=== PATIENT | male | born 1950 | race Caucasian/White ===

== ENCOUNTER 2017-02-27 11:06 | Emergency (ER) | payer SELFPAY ==
[~2017-02-27] VITALS: Ht 177.8 cm; Wt 96.0 kg
[2017-02-27 11:08] VITALS: Ht 177.8 cm; Wt 96.0 kg
[2017-02-27] MEDS ORDERED: LIDOCAINE 1% (MDV) 20 ML INJ SC ONE (13:30)
[2017-02-27] MEDS ORDERED: DIPHTH/TET/ACEL PERTUSS (ADULT) 0.5 ML VIAL IM* ONE (13:30)
--- NOTE | 2017-02-27 13:48 | RADRPT ---
PROCEDURE: Right hand series CLINICAL INDICATION: Right hand pain after trauma TECHNIQUE: Three views of the right hand were obtained. COMPARISON: No prior studies are available for comparison. FINDINGS: There is normal mineralization and alignment of the bones of the right hand. There is evidence of a healed fourth metacarpal fracture. There is no definitive evidence of acute fracture or dislocatio n. Joint spaces are well maintained. There is no evidence of osteophyte formation or erosions. Th e soft tissues are within normal limits. IMPRESSION: 1. No evidence of acute fracture or dislocation. 2. Healed fourth metacarpal fracture.. RPTAT: KK .Kevin Sahu MD, Date Time Electronically viewed and signed by .Kevin Sahu MD, on 02/27/2017 13:48 .B/
--- NOTE | 2017-02-27 13:49 | RADRPT ---
PROCEDURE: Left hand series CLINICAL INDICATION: Left hand pain after trauma TECHNIQUE: Three views of the left hand were obtained. COMPARISON: No prior studies are available for comparison. FINDINGS: There is normal mineralization and alignment of the bones of the left hand. There is no evidence of acute fracture or dislocation. Joint spaces are well maintained. There is no evidence of osteophy te formation or erosions. There are small hyperdensities within the volar subcutaneous tissues of t he base of the third digit and adjacent to the first distal interphalangeal joint. These findings l ikely represent small retained foreign bodies. There is also a small retained foreign body adjacent to the distal second metacarpal. There is diffuse soft tissue swelling IMPRESSION: 1. Diffuse soft tissue swelling without evidence of acute fracture or dislocation. 2. Multiple subcutaneous hyperdensities throughout the left and consistent with small foreign chelsie s.. RPTAT: KK .Kevin Sahu MD, MD Date Time Electronically viewed and signed by .Kevin Sahu MD, on 02/27/2017 13:49 .B/
[2017-02-27] MEDS ORDERED: IBUP-1542 PO (15:16)
--- NOTE | 2017-02-27 15:24 | ERD ---
ER Documentation Chief Complaint Date/Time DATE: 02/27/17 TIME: 15:20 Chief Complaint lac rt 2nd finger , lt middle finger and palm of hand with metal hardener HPI 66-year-old male present ED with laceration in the bilateral hands. 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 Patient stated that the barytes grinder was stuck in the middle. When he tried to pull the liner out, the barytes grinder was flung up in the air while still running and headed towards his head. He reports in both his hands up to protect his head. The barytes grinder hit his hands. He reports normal sensation in all his fingers, and able to move his fingers. He does not remember when his last tetanus update was. ROS All systems reviewed and are negative except as per history of present illness. Medications Home Meds Active Scripts Ibuprofen* (Motrin*) 600 Mg Tab, 600 MG PO Q6H Y for PAIN AND OR ELEVATED TEMP, #30 TAB Prov:JOE SMITH Ananya. WINDOW AIR CONDITIONER INSTALLER 02/27/17 PMhx/Soc Medical and Surgical Hx: pt denies Medical Hx Physical Exam Vitals Vital Signs Date Time Temp Pulse Resp B/P Pulse Ox O2 Delivery O2 Flow Rate FiO2 02/27/17 11:08 98.0 78 18 141/67 99 Physical Exam General: Well-developed, well-nourished, conscious and coherent, in no distress Skin: Warm and dry without rash, good texture and turgor Head: Normocephalic without evidence of trauma Chest: Normal AP diameter, good expansion without retractions. Nontender. Lungs are clear to auscultate bilaterally with good tidal volume Heart: Regular rate and rhythm. No murmur, rub, or gallop heard Abdomen: Soft and nontender without masses, guarding, or rebound. Bowel sounds are active. No hepatosplenomegaly Extremities: There is a 4.5 cm deep laceration in the webbing space between the second and third finger of the right hand, laceration extending to the palm. There is a 4 cm long laceration in the webbing space between the third and fourth finger of the left hand, laceration extended into the palm and the dorsal aspect of the left hand. There is also a 2.5 cm shallow laceration on the palmar aspect of the left third finger. Full range of motion. Good strength bilaterally. Peripheral pulses are intact. Sensation intact. Neuro: Alert and oriented. Mental status normal, speech clear. Cranial nerves grossly intact Results 24 hrs Current Medications Medications (Trade) Dose Ordered Sig/Derrick Route PRN Reason Start Time Stop Time Status Last Admin Dose Admin Diphtheria/ Tetanus/Acell Pertussis (Adacel) 0.5 ml ONCE ONCE IM* 02/27/17 13:30 02/27/17 13:31 DC 02/27/17 13:51 Lidocaine (Xylocaine 1% (Mdv) 20 ml) 20 ml ONCE ONCE SC 02/27/17 13:30 02/27/17 13:31 DC PROCEDURE: Left hand series CLINICAL INDICATION: Left hand pain after trauma TECHNIQUE: Three views of the left hand were obtained. COMPARISON: No prior studies are available for comparison. FINDINGS: There is normal mineralization and alignment of the bones of the left hand. There is no evidence of acute fracture or dislocation. Joint spaces are well maintained. There is no evidence of osteophyte formation or erosions. There are small hyperdensities within the volar subcutaneous tissues of the base of the third digit and adjacent to the first distal interphalangeal joint. These findings likely represent small retained foreign bodies. There is also a small retained foreign body adjacent to the distal second metacarpal. There is diffuse soft tissue swelling IMPRESSION: 1. Diffuse soft tissue swelling without evidence of acute fracture or dislocation. 2. Multiple subcutaneous hyperdensities throughout the left and consistent with small foreign bodies.. RPTAT: KK .Kevin Sahu MD, MD Date Time Electronically viewed and signed by .Kevin Sahu MD, MD on 2016 13:49 .B/ CC: JOE SMITH NP PROCEDURE: Right hand series CLINICAL INDICATION: Right hand pain after trauma TECHNIQUE: Three views of the right hand were obtained. COMPARISON: No prior studies are available for comparison. FINDINGS: There is normal mineralization and alignment of the bones of the right hand. There is evidence of a healed fourth metacarpal fracture. There is no definitive evidence of acute fracture or dislocation. Joint spaces are well maintained. There is no evidence of osteophyte formation or erosions. The soft tissues are within normal limits. IMPRESSION: 1. No evidence of acute fracture or dislocation. 2. Healed fourth metacarpal fracture.. RPTAT: KK .Kevin Sahu MD, MD Date Time Electronically viewed and signed by .Kevin Sahu MD, MD on 2016 13:48 .B/ CC: JOE SMITH WINDOW AIR CONDITIONER INSTALLER Procedures/MDM Procedure note: laceration repair Verbal consent was obtained for the laceration repair. The wound was copiously irrigated. Local anesthesia was provided using 1% lidocaine. After appropriate anesthesia, the area was explored under a bloodless field. Full range of motion of the joint above and below the injury was noted. No foreign body, deep structure or tendon involvement was noted. Wound closure: Right hand: 4.5 cm wound, 7 interrupted sutures with 4-0 Ethilon Left hand: 4 cm wound, 6 interrupted sutures with 4-0 Ethilon Left third digit, 2.5 cm laceration, 4 interrupted sutures with 4-0 Ethilon Good cosmetic and hemostatic results were obtained with the closure. The wound was then cleaned and a dressing was applied. Bartolome taping was used to immobilize left third and fourth fingers, as well as right second and third fingers. Patient was noted to be comfortable and neurovascularly intact both before and after the immobilization. TDap given to the patient in the ED. Patient advised to follow-up in the ED in 2 days for wound check. Departure Diagnosis: Primary Impression: Laceration Condition: Good Patient Instructions: Laceration, Hand Referrals[facility] Usted se sepulveda hecho un examen mdico de control que le indica que no est en antione condicin que requiera tratamiento urgente en el Departamento de Emergencia. Un estudio ms profundo y el tratamiento de castaneda condicin pueden esperar sin ningn riesgo hasta que usted sea atendida/o en el consultorio de castaneda mdico o antione cl breezy. Es responsabilidad suya arreglar antione christiano para el seguimiento del kailyn. MANEJO DE CONDICIONES NO URGENTES EN EL FUTURO 1) Si usted tiene un mdico de atencin primaria: Usted debera llamar a castaneda mdico de atencin primaria antes de venir al departamento de emergencia. Despus de las horas de consultorio, castaneda doctor o castaneda asociado/a est disponible por telfono. El mdico o enfermero de mariia en el servicio telefnico puede asesorarle por mamie medio para atender el problema, o kailyn contrario se puede programar antione christiano. 2) Si usted no tiene un mdico de atencin primaria: Llame al mdico o clnica de referencia que aparece abajo jose de jesus las horas de consultorio para hacer antione christiano para que le vean. CLINICAS: [facility] [phone] [address] [facility] [phone] [address] [facility]. [facility] [phone] [address] [facility]. [place] [address] [phone] [facility] [place] [address] [phone] [facility] [phone] [address] Additional Instructions: Regrese a estas instalaciones dentro de [place] para un examen de seguimiento.Regrese antes si castaneda condicin se empeora. SUTURE REMOVAL:CONSULTE A CASTANEDA MDICO PARA SACAR CASTANEDA PUNTOS.PARA LA VINCENT 5-6 d as.EN OTRO LUGAR 7-10 greene. JOE SMITH NP February 27, 2017 15:24
[2017-02-27 16:55] VITALS: BP 128/60; PULSE 85; RESP 18; TEMP 98.3
== END 2017-02-27 16:58 | disposition home or self-care (01) ==
LOC: FTE 11:06
DX: S61.210A Laceration without foreign body of right index finger without damage to nail, initial encounter (principal); S61.212A Laceration without foreign body of right middle finger without damage to nail, initial encounter; S61.213A Laceration without foreign body of left middle finger without damage to nail, initial encounter; S61.215A Laceration without foreign body of left ring finger without damage to nail, initial encounter; W26.8XXA Contact with other sharp object(s), not elsewhere classified, initial encounter; Y92.9 Unspecified place or not applicable; Z23 Encounter for immunization
CPT/HCPCS: 90471; 90715

== ENCOUNTER 2017-03-01 08:12 | Emergency (ER) | payer SELFPAY ==
[~2017-03-01] VITALS: Wt 92.0 kg
[~2017-03-01 08:12] MED LIST: IBUP-1542 PO
--- NOTE | 2017-03-01 08:48 | ERD ---
ER Documentation Chief Complaint Date/Time DATE: 03/01/17 TIME: 08:43 Chief Complaint bilateral hand wound 2 days ago . here for suture recheck . no complaints HPI Patient is a 66-year-old male who presents to the emergency department for wound recheck. Patient was seen here on 02-27-17 for lacerations his bilateral hands. Patient sustained lacerations after trying to catch a filer metal patterns that was headed towards his head. Patient denies any complaints at this time. Patient denies any fevers, chills, nausea, vomiting, redness, swelling, warmth or any pain.Patient reports normal range of motion of all digits and normal sensation. Patient denies taking any pain medication. Patient was given his tetanus vaccination at last visit. ROS All systems reviewed and are negative except as per history of present illness. Medications Home Meds Active Scripts Ibuprofen* (Motrin*) 600 Mg Tab, 600 MG PO Q6H Y for PAIN AND OR ELEVATED TEMP, #30 TAB Prov:JOE SMITH SURGERY TEACHER 02/27/17 PMhx/Soc Hx Alcohol Use: No Hx Substance Use: No Hx Tobacco Use: No Physical Exam Vitals Vital Signs Date Time Temp Pulse Resp B/P Pulse Ox O2 Delivery O2 Flow Rate FiO2 03/01/17 08:16 98.0 59 21 171/85 98 Physical Exam GENERAL: Well-developed, well-nourished male. Appears in no acute distress. HEAD: Normocephalic, atraumatic. EYES: Pupils are equally reactive bilaterally. EOMs grossly intact. No conjunctival erythema. NECK: Supple. No meningismus. Normal range of motion of the neck. LUNG: Clear to auscultation bilaterally. No rhonchi, wheezing, rales or coarse breath sounds. HEART: Regular rate and rhythm. No murmurs, rubs or gallops. EXTREMITIES: Equal pulses bilaterally. No peripheral clubbing, cyanosis or edema. No unilateral leg swelling. NEUROLOGIC: Alert and oriented. Moving all four extremities without any difficulty. Normal speech. Steady gait. SKIN: Normal color. RIGHT HAND: 4 cm laceration with sutures in place, no active bleeding or discharge. Good wound approximation and closure. No warmth, redness or swelling. LEFT HAND: 4 cm laceration with sutures in place, no active bleeding or discharge. Good wound approximation and closure. No warmth, redness or swelling. LEFT THIRD WEB SPACE: 2 cm laceration noted with sutures in place, no active bleeding or discharge. Good wound approximation closure. Skin appears macerated secondary to retained moisture from dressing. No warmth, redness or swelling. Procedures/MDM MEDICAL DECISION MAKING: This is a 66-year-old male who presents for wound check 2 lacerations on his bilateral hands. Vital signs were reviewed. Patient is afebrile. The wounds appear to be healing well with no concerns of acute infection at this time. No wound drainage or wound dehiscence noted. Tetanus is up-to-date. Post- procedural wound care was discussed with the patient. PRESCRIPTIONS: none, continue to take pain medication as needed. DISCHARGE: At this time, the patient is stable for discharge and outpatient management. Post-procedural wound care was discussed with the patient. Patient advised to return in 1 week for suture removal. I have instructed the patient to promptly return to the ER for any new or worsening symptoms including increasing pain, fever, warmth, redness or swelling. The patient and/or family expressed understanding of and agreement with this plan. All questions were answered. Home care instructions were provided. Departure Diagnosis: Primary Impression: Encounter for wound re-check Additional Impression: Laceration Patient Instructions: Wound Check, Lac F/U (No Infection) Referrals: [facility] YOU HAVE RECEIVED A MEDICAL SCREENING EXAM AND THE RESULTS INDICATE THAT YOU DO NOT HAVE A CONDITION THAT REQUIRES URGENT TREATMENT IN THE EMERGENCY DEPARTMENT. FURTHER EVALUATION AND TREATMENT OF YOUR CONDITION CAN WAIT UNTIL YOU ARE SEEN IN YOUR DOCTORS OFFICE WITHIN THE NEXT 1-2 DAYS. IT IS YOUR RESPONSIBILITY TO MAKE AN APPOINTMENT FOR FOLOW-UP CARE. IF YOU HAVE A PRIMARY DOCTOR --you should call your primary doctor and schedule an appointment IF YOU DO NOT HAVE A PRIMARY DOCTOR YOU CAN CALL OUR PHYSICIAN REFERRAL HOTLINE AT IF YOU CAN NOT AFFORD TO SEE A PHYSICIAN YOU CAN CHOSE FROM THE FOLLOWING [facility] [address] [facility] [address] [facility] [place] [address] [facility] [address] [facility] [address] [facility]. [facility] [address] [facility]. [facility] YOU HAVE RECEIVED A MEDICAL SCREENING EXAM AND THE RESULTS INDICATE THAT YOU DO NOT HAVE A CONDITION THAT REQUIRES URGENT TREATMENT IN THE EMERGENCY DEPARTMENT. FURTHER EVALUATION AND TREATMENT OF YOUR CONDITION CAN WAIT UNTIL YOU ARE SEEN IN YOUR DOCTORS OFFICE WITHIN THE NEXT 1-2 DAYS. IT IS YOUR RESPONSIBILITY TO MAKE AN APPOINTMENT FOR FOLOW-UP CARE. IF YOU HAVE A PRIMARY DOCTOR --you should call your primary doctor and schedule and appointment IF YOU DO NOT HAVE A PRIMARY DOCTOR YOU CAN CALL OUR PHYSICIAN REFERRAL HOTLINE AT . IF YOU CAN NOT AFFORD TO SEE A PHYSICIAN YOU CAN CHOSE FROM THE FOLLOWING [facility] INSTITUTIONS: [facility] [address] [place] [address] [facility] [address] [place] [address] [facility] + [facility] [address] [place] [address] Additional Instructions: Return to the emergency department in 1 week for suture removal. Continue to monitor symptoms. Return for any new or worsening symptoms including but not limited to fevers, chills, nausea, vomiting, redness, swelling , or warmth. AMERICA DELGADO PA-C March 01, 2017 08:48
== END 2017-03-01 09:10 | disposition home or self-care (01) ==
LOC: FTE 08:12
DX: Z48.01 Encounter for change or removal of surgical wound dressing (principal); S61.412D Laceration without foreign body of left hand, subsequent encounter; S61.411D Laceration without foreign body of right hand, subsequent encounter; W29.8XXD Contact with other powered hand tools and household machinery, subsequent encounter
CPT/HCPCS: 99281

== ENCOUNTER 2017-03-11 07:17 | Emergency (ER) | payer SELFPAY ==
[~2017-03-11] VITALS: Ht 177.8 cm; Wt 97.5 kg
[2017-03-11 07:21] VITALS: Ht 177.8 cm; Wt 97.5 kg
[2017-03-11 08:04] VITALS: BP 180/96; PULSE 66; RESP 20; TEMP 98.3
--- NOTE | 2017-03-11 09:01 | ERD ---
ER Documentation Chief Complaint Date/Time DATE: 03/11/17 TIME: 08:55 Chief Complaint left and right hand suture removal HPI This is a 66-year-old male presenting to emergency department for suture removal. Patient had an injury involving a metal control coordinator on 02/27/2017. Patient had a total of 17 sutures placed at that time to left and right hand. Patient denies fever chills. No erythema, warmth, drainage or induration. Patient denies pain. No other complaints. ROS All systems reviewed and are negative except as per history of present illness. Medications Home Meds Active Scripts Ibuprofen* (Motrin*) 600 Mg Tab, 600 MG PO Q6H Y for PAIN AND OR ELEVATED TEMP, #30 TAB Prov:JOE SMITH EMERGENCY MANAGEMENT DIRECTOR 02/27/17 Allergies Allergies: Coded Allergies: No Known Allergy (Unverified , 03/11/17) PMhx/Soc Hx Alcohol Use: No Hx Substance Use: No Hx Tobacco Use: No Physical Exam Vitals Vital Signs Date Time Temp Pulse Resp B/P Pulse Ox O2 Delivery O2 Flow Rate FiO2 03/11/17 08:04 98.3 66 20 180/96 97 Room Air 03/11/17 07:21 97.8 66 18 196/98 96 Physical Exam Const: Alert Head: Atraumatic Eyes: Normal Conjunctiva ENT: Normal External Ears, Nose and Mouth. Neck: Full range of motion..~ No meningismus. Resp: Clear to auscultation bilaterally Cardio: Regular rate and rhythm, no murmurs Abd: Soft, non tender, non distended. Normal bowel sounds Skin: 4 cm laceration with [address] to right hand. no active bleeding or discharge. good wound approximation and closure without warmth, redness or swelling. 4cm laceration with [address] to left hand with no active bleeding or discharge. good wound approximation and closure. no warmth, reness or swelling. 2cm laceration with [address] to left third web space. no warmth, redness or swelling. good wound approximation and closure. Back: No midline or flank tenderness Ext: No cyanosis, or edema Neur: Awake and alert Psych: Normal Mood and Affect RIGHT HAND: 4 cm laceration with sutures in place, no active bleeding or discharge. Good wound approximation and closure. No warmth, redness or swelling. LEFT HAND: 4 cm laceration with sutures in place, no active bleeding or discharge. Good wound approximation and closure. No warmth, redness or swelling. LEFT THIRD WEB SPACE: 2 cm laceration noted with sutures in place, no active bleeding or discharge. Good wound approximation closure. Skin appears macerated secondary to retained moisture from dressing. No warmth, redness or swelling. Procedures/MDM Results 24 hrs Current Medications Medications (Trade) Dose Ordered Sig/Derrick Route PRN Reason Start Time Stop Time Status Last Admin Dose Admin Clonidine (Catapres) 0.1 mg ONCE ONCE PO 03/11/17 09:00 03/11/17 09:01 DC Procedures/MDM MDM: 66-year-old male presents emergency department for suture removal. Suture Removal performed by me. Verbal consent obtained. 17 Sutures removed with tweezers and scissors without incident. Wound shows no evidence of infection, foreign body, neurologic injury, vascular injury, open joint or tendon laceration. Patient's blood pressure 196/98 mmHg upon arrival to ED. Patient denies chest pain, shortness breath or difficulty breathing. Upon reassessment, patient's blood pressure 180/96 mm Hg. Patient given clonidine 0.1mg. Upon reassessment, patient is unable to be located and appears to have eloped. Departure Diagnosis: Primary Impression: Encounter for removal of sutures Additional Impression: Hypertension Hypertension type: unspecified secondary hypertension Qualified Code: I15.9 - Secondary hypertension Condition: Stable Patient Instructions: Suture Removal, No Complication Referrals: [facility] YOU HAVE RECEIVED A MEDICAL SCREENING EXAM AND THE RESULTS INDICATE THAT YOU DO NOT HAVE A CONDITION THAT REQUIRES URGENT TREATMENT IN THE EMERGENCY DEPARTMENT. FURTHER EVALUATION AND TREATMENT OF YOUR CONDITION CAN WAIT UNTIL YOU ARE SEEN IN YOUR DOCTORS OFFICE WITHIN THE NEXT 1-2 DAYS. IT IS YOUR RESPONSIBILITY TO MAKE AN APPOINTMENT FOR FOLOW-UP CARE. IF YOU HAVE A PRIMARY DOCTOR --you should call your primary doctor and schedule an appointment IF YOU DO NOT HAVE A PRIMARY DOCTOR YOU CAN CALL OUR PHYSICIAN REFERRAL HOTLINE AT IF YOU CAN NOT AFFORD TO SEE A PHYSICIAN YOU CAN CHOSE FROM THE FOLLOWING [facility] [address] [facility]. [facility] [address] [facility] [place] [address] [facility] [address] [facility] [address] [facility] [address] [facility] YOU HAVE RECEIVED A MEDICAL SCREENING EXAM AND THE RESULTS INDICATE THAT YOU DO NOT HAVE A CONDITION THAT REQUIRES URGENT TREATMENT IN THE EMERGENCY DEPARTMENT. FURTHER EVALUATION AND TREATMENT OF YOUR CONDITION CAN WAIT UNTIL YOU ARE SEEN IN YOUR DOCTORS OFFICE WITHIN THE NEXT 1-2 DAYS. IT IS YOUR RESPONSIBILITY TO MAKE AN APPOINTMENT FOR FOLOW-UP CARE. IF YOU HAVE A PRIMARY DOCTOR --you should call your primary doctor and schedule and appointment IF YOU DO NOT HAVE A PRIMARY DOCTOR YOU CAN CALL OUR PHYSICIAN REFERRAL HOTLINE AT . IF YOU CAN NOT AFFORD TO SEE A PHYSICIAN YOU CAN CHOSE FROM THE FOLLOWING [facility] INSTITUTIONS: [facility] [address] [place] [address] [facility] [address] [place], [place] [id number] [place] [address] + [facility] [address] [place] [address] Additional Instructions: Call your primary care doctor TOMORROW for an appointment during the next 2-3 days.See the doctor sooner or return here if your condition worsens before your appointment time. Return to ED for any high fever, chest pain, difficulty breathing, shortness breath, wheezing, vomiting, diarrhea, abdominal pain or any new or worsening symptoms. MILTON ANTHONY NP March 11, 2017 09:01
== END 2017-03-11 09:05 | disposition left against medical advice (07) ==
LOC: FTE 07:17
DX: Z48.02 Encounter for removal of sutures (principal); I15.9 Secondary hypertension, unspecified
CPT/HCPCS: 99283